=== PATIENT | female | born 1955 | race Caucasian/White ===

== ENCOUNTER 2019-08-29 07:20 | Observation (INO) | payer BC ==
[2019-08-29] MEDS ORDERED: ONDANSETRON 4 MG/2 ML VIAL IVP STA (07:37)
[2019-08-29] MEDS ORDERED: SODIUM CHLORIDE 0.9% 2,000 ML IV STA (07:37)
[2019-08-29] MEDS ORDERED: KETOROLAC 30 MG/ML 1 ML VIAL IVP STA (07:37)
--- NOTE | 2019-08-29 07:39 | ED ---
General Adult HPI - General Chief complaint: Nausea/Vomiting/Diarrhea Stated complaint: Lower L abd pain Time Seen by Provider: 08/29/19 07:28 Source: patient Mode of arrival: ambulatory Limitations: no limitations - History of Present Illness Initial comments: This is a 63-year-old female presents emergency Department chief complaint left lower quadrant abdominal pain. Patient states his started around 10 PM last night has been persistent. Patient states that makes pain feel better or worse. Patient states that she's been vomiting throughout the night there is no back pain or any flank pain at this time. She denies any history of abdominal series or any prior GI infections such as diverticulitis. Patient's had no melena, hematochezia. No dysuria no hematuria. She states she is unable to take anything for pain because she's been vomiting. No chest pain or shortness breath. - Related Data Allergies Allergy/AdvReac Type Severity Reaction Status Date / Time Penicillins Allergy Rash/Hives Verified 08/29/19 07:25 Review of Systems ROS Statement: Those systems with pertinent positive or pertinent negative responses have been documented in the HPI. ROS Other: All systems not noted in ROS Statement are negative. Past Medical History Past Medical History: No Reported History History of Any Multi-Drug Resistant Organisms: None Reported Past Surgical History: No Surgical Hx Reported Past Psychological History: No Psychological Hx Reported Smoking Status: Never smoker Past Alcohol Use History: Occasional Past Drug Use History: None Reported General Exam Limitations: no limitations General appearance: alert, in no apparent distress Head exam: Present: atraumatic, normocephalic, normal inspection ENT exam: Present: mucous membranes dry Neck exam: Present: normal inspection, full ROM. Absent: tenderness, meningismus, lymphadenopathy Respiratory exam: Present: normal lung sounds bilaterally. Absent: respiratory distress, wheezes, rales, rhonchi, stridor Cardiovascular Exam: Present: regular rate, normal rhythm, normal heart sounds. Absent: systolic murmur, diastolic murmur, rubs, gallop, clicks GI/Abdominal exam: Present: soft, tenderness (Moderate left lower quadrant), normal bowel sounds. Absent: distended, guarding, rebound, rigid Back exam: Absent: CVA tenderness (R), CVA tenderness (L) Neurological exam: Present: alert, oriented X3 Skin exam: Present: warm, dry, intact, normal color. Absent: rash Course Vital Signs 08/29/19 07:22 Temperature 98.3 F Pulse Rate 104 H Respiratory 18 Rate Blood Pressure 138/90 O2 Sat by Pulse 95 Oximetry Medical Decision Making - Medical Decision Making 63-year-old female presented from for abdominal discomfort. Labs reviewedand abnormality., CT shows evidence of a 12 x 12 cm pelvic mass concerning for ovarian malignancy. Patient will be admitted for evaluation and further treatment. - Lab Data Result diagrams: 08/29/19 07:51 08/29/19 07:51 Lab Results 08/29/19 08/29/19 08/29/19 Range/Units 07:51 07:51 07:51 WBC 7.9 (3.8-10.6) k/uL RBC 4.38 (3.80-5.40) m/uL Hgb 13.2 (11.4-16.0) gm/dL Hct 40.6 (34.0-46.0) % MCV 92.7 (80.0-100.0) fL MCH 30.1 (25.0-35.0) pg MCHC 32.5 (31.0-37.0) g/dL RDW 12.3 (11.5-15.5) % Plt Count 258 (150-450) k/uL Neutrophils % 89 % Lymphocytes % 6 % Monocytes % 2 % Eosinophils % 1 % Basophils % 1 % Neutrophils # 7.1 (1.3-7.7) k/uL Lymphocytes # 0.4 L (1.0-4.8) k/uL Monocytes # 0.2 (0-1.0) k/uL Eosinophils # 0.0 (0-0.7) k/uL Basophils # 0.1 (0-0.2) k/uL Sodium 137 (137-145) mmol/L Potassium 4.1 (3.5-5.1) mmol/L Chloride 104 (98-107) mmol/L Carbon Dioxide 26 (22-30) mmol/L Anion Gap 7 mmol/L BUN 13 (7-17) mg/dL Creatinine 0.58 (0.52-1.04) mg/dL Est GFR (CKD-EPI)AfAm >90 (>60 ml/min/1.73 sqM) Est GFR (CKD-EPI)NonAf >90 (>60 ml/min/1.73 sqM) Glucose 162 H (74-99) mg/dL Plasma Lactic Acid Naveen (0.7-2.0) mmol/L Calcium 9.5 (8.4-10.2) mg/dL Total Bilirubin 0.4 (0.2-1.3) mg/dL AST 27 (14-36) U/L ALT 22 (4-34) U/L Alkaline Phosphatase 52 (38-126) U/L Total Protein 7.3 (6.3-8.2) g/dL Albumin 4.5 (3.5-5.0) g/dL Amylase 61 (30-110) U/L Lipase 56 (23-300) U/L Urine Color Yellow Urine Appearance Clear (Clear) Urine pH 7.5 (5.0-8.0) Ur Specific [place] 1.021 (1.001-1.035) Urine Protein Trace H (Negative) Urine Glucose (UA) Trace H (Negative) Urine Ketones 2+ H (Negative) Urine Blood Trace H (Negative) Urine Nitrite Negative (Negative) Urine Bilirubin Negative (Negative) Urine Urobilinogen <2.0 (<2.0) mg/dL Ur Leukocyte Esterase Negative (Negative) Urine RBC 5 (0-5) /hpf Urine WBC 1 (0-5) /hpf Ur Squamous Epith Cells <1 (0-4) /hpf Amorphous Sediment Rare H (None) /hpf Urine Mucus Occasional H (None) /hpf 08/28/ Range/Units 07:51 WBC (3.8-10.6) k/uL RBC (3.80-5.40) m/uL Hgb (11.4-16.0) gm/dL Hct (34.0-46.0) % MCV (80.0-100.0) fL MCH (25.0-35.0) pg MCHC (31.0-37.0) g/dL RDW (11.5-15.5) % Plt Count (150-450) k/uL Neutrophils % % Lymphocytes % % Monocytes % % Eosinophils % % Basophils % % Neutrophils # (1.3-7.7) k/uL Lymphocytes # (1.0-4.8) k/uL Monocytes # (0-1.0) k/uL Eosinophils # (0-0.7) k/uL Basophils # (0-0.2) k/uL Sodium (137-145) mmol/L Potassium (3.5-5.1) mmol/L Chloride (98-107) mmol/L Carbon Dioxide (22-30) mmol/L Anion Gap mmol/L BUN (7-17) mg/dL Creatinine (0.52-1.04) mg/dL Est GFR (CKD-EPI)AfAm (>60 ml/min/1.73 sqM) Est GFR (CKD-EPI)NonAf (>60 ml/min/1.73 sqM) Glucose (74-99) mg/dL Plasma Lactic Acid Naveen 1.2 (0.7-2.0) mmol/L Calcium (8.4-10.2) mg/dL Total Bilirubin (0.2-1.3) mg/dL AST (14-36) U/L ALT (4-34) U/L Alkaline Phosphatase (38-126) U/L Total Protein (6.3-8.2) g/dL Albumin (3.5-5.0) g/dL Amylase (30-110) U/L Lipase (23-300) U/L Urine Color Urine Appearance (Clear) Urine pH (5.0-8.0) Ur Specific [place] (1.001-1.035) Urine Protein (Negative) Urine Glucose (UA) (Negative) Urine Ketones (Negative) Urine Blood (Negative) Urine Nitrite (Negative) Urine Bilirubin (Negative) Urine Urobilinogen (<2.0) mg/dL Ur Leukocyte Esterase (Negative) Urine RBC (0-5) /hpf Urine WBC (0-5) /hpf Ur Squamous Epith Cells (0-4) /hpf Amorphous Sediment (None) /hpf Urine Mucus (None) /hpf Disposition Clinical Impression: Abdominal pain, Pelvic mass Disposition: ADMITTED IP TO THIS HOSP Condition: Fair Referrals: Samuel Arauz MD [Primary Care Provider] - 1-2 days
[2019-08-29 08:08] LABS: Basophils # (A) 0.1 k/uL (0-0.2); Basophils % (A) 1 %; Eosinophils % (A) 1 %; HCT 40.6 % (34.0-46.0); HGB 13.2 gm/dL (11.4-16.0); Lymphocytes # (A) 0.4 k/uL (1.0-4.8); Lymphocytes % (A) 6 %; MCH 30.1 pg (25.0-35.0); MCHC 32.5 g/dL (31.0-37.0); MCV 92.7 fL (80.0-100.0); Monocytes # (A) 0.2 k/uL (0-1.0); Monocytes % (A) 2 %; Neutrophils # (A) 7.1 k/uL (1.3-7.7); Neutrophils % (A) 89 %; Platelet Count 258 k/uL (150-450); RBC 4.38 m/uL (3.80-5.40); RDW 12.3 % (11.5-15.5); WBC 7.9 k/uL (3.8-10.6)
[2019-08-29 08:20] LABS: ALT 22 U/L (4-34); AST 27 U/L (14-36); African American GFR (CKD) >90 (>60 ml/min/1.73 sqM); Albumin 4.5 g/dL (3.5-5.0); Alkaline Phosphatase 52 U/L (38-126); Amylase 61 U/L (30-110); Anion Gap 7 mmol/L; Blood Urea Nitrogen 13 mg/dL (7-17); Calcium 9.5 mg/dL (8.4-10.2); Carbon Dioxide 26 mmol/L (22-30); Chloride 104 mmol/L (98-107); Glucose 162 mg/dL (74-99); Non-African American GFR(CKD) >90 (>60 ml/min/1.73 sqM); Potassium 4.1 mmol/L (3.5-5.1); Sodium 137 mmol/L (137-145); Total Bilirubin 0.4 mg/dL (0.2-1.3); Total Protein 7.3 g/dL (6.3-8.2)
--- NOTE | 2019-08-29 08:46 | CT ---
EXAMINATION TYPE: CT abdomen pelvis w con DATE OF EXAM: 08/29/2019 REFERENCE: NONE HISTORY: LLQ abd pain HISTORY: Left lower abdominal pain REFERENCE: NONE CT DLP: 796.5 mGy Automated exposure control for dose reduction was used. TECHNIQUE: Helical acquisition through the abdomen and pelvis was obtained following the oral ingesti on of without Oral Contrast and following intravenous administration of 100 ml mL of Isovue 300. The data was reformatted in axial, coronal and sagittal projections. FINDINGS: There is minimal dependent atelectasis at the lung bases. There is some scarring or atelec tasis in the right middle lobe. Visualized portions of the lungs are otherwise clear. There is no ple ural or pericardial fluid. The heart is not enlarged. Within the abdomen, there are multiple low attenuating lesions within the liver. The largest measures 1.5 cm and is in the posterior segment of the right lobe of the liver. These likely represent cysts. This could be confirmed with ultrasound. The spleen and gallbladder are normal. There is a small, sliding hiatal hernia. Both adrenal glands are normal. Both kidneys demonstrate function and appear morphologically normal. The pancreas is unremarkable. There is no significant retroperitoneal, iliac or inguinal adenopathy. There is a multiloculated and septated 11 x 10.3 x 11.8 cm mass arising in the pelvis. This is most l ikely ovarian in origin. The uterus is tilted towards the left due to this mass. The uterus is slight ly heterogenous and may be affected by fibroid change. The bladder is not distended. There is no significant diverticular change and there is no radiographic evidence of diverticulitis. The appendix is normal. Small bowel loops are of normal caliber. No free air is seen. There is a small amount of free fluid within the pelvis. There is degenerative disc disease and a vacuum phenomena present at L5-S1. There is degenerative gra de 1 spondylolisthesis of L4 and L5. No bony destructive lesions are seen. IMPRESSION: 1. LARGE, 11 X 10.3 X 11.8 CM PELVIC MASS WHICH IS LOCULATED WITH 6 SEPTI WITHIN IT. THIS LIKELY FIONA ES FROM THE RIGHT OVARY AND IS CONCERNING FOR OVARIAN MALIGNANCY. 2. PROBABLE FIBROID CHANGE WITHIN THE UTERUS. 3. SMALL, SLIDING HIATAL HERNIA. 4. MULTIPLE, SMALL HEPATIC LESIONS LIKELY REPRESENTING CYSTS. THIS SHOULD BE CONFIRMED WITH ULTRASOUN D. 5. PROBABLE FIBROID UTERUS. 6. DEGENERATIVE CHANGES WITHIN THE SPINE. THIS WAS PHONED TO SENG HOLLAND IN THE ER AT THE TIME OF REPORTING.
[2019-08-29 08:53] LABS: Amorphous Sediment,Urine Rare /hpf; Appearance,Urine Clear (Clear); Bilirubin,Urine Negative (Negative); Blood,Urine Trace (Negative); Color,Urine Yellow; Glucose,Urine (UA) Trace (Negative); Ketones,Urine 2+ (Negative); Leukocyte Esterase,Urine Negative (Negative); Mucus,Urine Occasional /hpf; Nitrite,Urine Negative (Negative); PH, Urine 7.5 (5.0-8.0); Protein,Urine Trace (Negative); RBC,Urine 5 /hpf (0-5); Specific Gravity,Urine 1.021 (1.001-1.035); Squamous Epithelial Cell,Urine <1 /hpf (0-4); Urobilinogen,Urine <2.0 mg/dL (<2.0); WBC,Urine 1 /hpf (0-5)
[2019-08-29] MEDS ORDERED: MORPHINE SULFATE 4 MG/ML SYRINGE IVP STA (08:56)
[2019-08-29] MEDS ORDERED: NALOXONE 0.4 MG/ML 1 ML VIAL IV PRN (09:05)
[2019-08-29] MEDS ORDERED: ONDANSETRON 4 MG/2 ML VIAL IVP PRN (09:05)
[2019-08-29] MEDS ORDERED: HYDROcodone/APAP 5-325MG 1 EACH TAB PO PRN (09:05)
--- NOTE | 2019-08-29 14:04 | P.CONS ---
History of Present Illness - Reason for Consult Consult date: 08/29/19 Pelvic Mass Requesting physician: Meño Gonsales - Chief Complaint Abdominal Pain - History of Present Illness Very pleasant female who presented with abdominal pain and nausea. She States she has been feeling "gassy, Bloated" although when it didnt go away presented for further evaluation. A large pelvic mass was seen on CT appears to be arising from ovary. Molly has an extensive ovarian and breast cancer history in family, no personal history of cancer Review of Systems A 14 point review of systems assessed and completed and all negative except HPI Past Medical History Past Medical History: No Reported History History of Any Multi-Drug Resistant Organisms: None Reported Past Surgical History: No Surgical Hx Reported Past Anesthesia/Blood Transfusion Reactions: No Reported Reaction Past Psychological History: No Psychological Hx Reported Smoking Status: Never smoker Past Alcohol Use History: Occasional Past Drug Use History: None Reported Medications and Allergies Home Medications Medication Instructions Recorded Confirmed Type Atorvastatin [Lipitor] 20 mg PO DAILY 08/29/19 08/29/19 History Allergies Allergy/AdvReac Type Severity Reaction Status Date / Time Penicillins Allergy Rash/Hives Verified 08/29/19 13:17 Physical Exam Vitals: Vital Signs Temp Pulse Resp BP Pulse Ox 08/29/19 11:43 16 08/29/19 09:31 92 18 141/78 99 08/29/19 09:26 91 18 98 08/29/19 07:22 98.3 F 104 H 18 138/90 95 Intake and Output 08/28/19 08/29/19 08/29/19 22:59 06:59 14:59 Other: Weight 70.307 kg - Constitutional General appearance: cooperative, no acute distress - EENT Eyes: EOMI, PERRLA, dentition normal ENT: normal oropharynx - Neck Neck: normal ROM - Respiratory Respiratory: negative: CTA - Cardiovascular Rhythm: regular Heart sounds: normal: S1, S2 - Gastrointestinal General gastrointestinal: distended, soft, tenderness - Integumentary Integumentary: pale - Neurologic Neurologic: CNII-XII intact - Musculoskeletal Musculoskeletal: generalized weakness, strength equal bilaterally - Psychiatric Psychiatric: A&O x's 3, appropriate affect, intact judgment & insight Results CBC & Chem 7: 08/29/19 07:51 08/29/19 07:51 Labs: Abnormal Lab Results - Last 24 Hours (Table) 0608/29/19 08/29/19 Range/Units 07:51 07:51 07:51 Lymphocytes # 0.4 L (1.0-4.8) k/uL Glucose 162 H (74-99) mg/dL Urine Protein Trace H (Negative) Urine Glucose (UA) Trace H (Negative) Urine Ketones 2+ H (Negative) Urine Blood Trace H (Negative) Amorphous Sediment Rare H (None) /hpf Urine Mucus Occasional H (None) /hpf Assessment and Plan Plan: Assessment and Recommendations: New Pelvic Mass: - Identified on CT as arising from Ovary - LDH and Ca125 ordered - Suspicious for malignancy arising from ovary, in this situation a biopsy is not usually recommended but rather intervention for Debulking surgical intervention. Will await Ca125 and LDH to determine probable etiology - Intravaginal Ultrasound to further assess mass - PACKING ROOM WORKER has been consulted Liver Lesions: - Too small to characterize on CT, likely cystic although MRI ordered to further define Thankyou for consultation
--- NOTE | 2019-08-29 14:23 | P.OBCN ---
History of Present Illness Consult date: 08/29/19 Requesting physician: Raphael Del Cid Reason for consult: pelvic pain, pelvic mass Chief complaint: pelvic pain, emesis History of present illness: 63-year-old presented to the emergency room complaining of left lower quadrant pain since last night around 11 PM. The pain came on suddenly and kept waking her up causing nausea and vomiting. Computed tomography scan shows an 11 x 10 x 11.8 cm left pelvic mass that has septations and they could not rule out malignancy. I was consulted for the pelvic mass. Review of Systems All systems: negative Constitutional: Denies chills, Denies fever Eyes: denies blurred vision, denies pain Ears, nose, mouth and throat: Denies headache, Denies sore throat Cardiovascular: Denies chest pain, Denies shortness of breath Respiratory: Denies cough Gastrointestinal: Reports abdominal pain, Reports nausea, Reports vomiting, Denies diarrhea Genitourinary: Denies abnormal vaginal bleeding, Denies dysuria, Denies hematuria Menstruation: Reports postmenopausal Musculoskeletal: Denies myalgias Integumentary: Denies pruritus, Denies rash Neurological: Denies numbness, Denies weakness Psychiatric: Denies anxiety, Denies depression Endocrine: Denies fatigue, Denies weight change Past Medical History Past Medical History: No Reported History Additional Past Medical History / Comment(s): Obstetric history: She's had 2 full-term vaginal deliveries History of Any Multi-Drug Resistant Organisms: None Reported Past Surgical History: No Surgical Hx Reported Past Anesthesia/Blood Transfusion Reactions: No Reported Reaction Past Psychological History: No Psychological Hx Reported Smoking Status: Never smoker Past Alcohol Use History: Occasional Past Drug Use History: None Reported Additional History: 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 No significant issues noted on an osteopathic structural exam other than those noted in the History and Physical/Consult. Vital Signs Temp Pulse Resp BP Pulse Ox 08/29/19 11:43 16 08/29/19 09:31 92 18 141/78 99 08/29/19 09:26 91 18 98 08/29/19 07:22 98.3 F 104 H 18 138/90 95 Intake and Output 08/28/19 08/29/19 08/29/19 22:59 06:59 14:59 Other: Weight 70.307 kg Heart: Regular rate and rhythm Lungs: Clear to auscultation bilaterally Abdomen: From the umbilicus down, her abdomen is hard, no rebound, no rigidity, tenderness more in the left side but also diffuse. Extremities: Negative Homans sign, no edema, 2 out of 4 DTR Results Result Diagrams: 08/29/19 07:51 08/29/19 07:51 Abnormal Lab Results - Last 24 Hours (Table) 08/29/19 08/29/19 08/29/19 Range/Units 07:51 07:51 07:51 Lymphocytes # 0.4 L (1.0-4.8) k/uL Glucose 162 H (74-99) mg/dL Urine Protein Trace H (Negative) Urine Glucose (UA) Trace H (Negative) Urine Ketones 2+ H (Negative) Urine Blood Trace H (Negative) Amorphous Sediment Rare H (None) /hpf Urine Mucus Occasional H (None) /hpf Assessment and Plan (1) Pelvic mass Current Visit: Yes Status: Acute Code(s): R19.00 - INTRA-ABD AND PELVIC SWELLING, MASS AND LUMP, UNSP SITE SNOMED Code(s): 55358790 Plan: 1.There was no ultrasound done to check for blood flow to that ovary so I will order that stat. CA-125 will also be ordered. 2. I had a long mo discussion with the patient today. I advised her that the computed tomography scan could not rule out cancer. We had a discussion about whether she has flow to that ovary or not and if the surgery to remove the pelvic mass and ovary should be done here at [facility]. If there is no flow to that ovary this becomes more of an urgent situation. However, if she does have cancer and that ovary, that her best chance for overall survival is in the hands of a RECEIVER STOCKER oncologist performing her surgery. After this thorough consultation, I advised that the patient should be transferred to [facility] where a gynecological oncology surgeon could evaluate and treat. I will discuss the case with Dr. Moeller, our her medical oncologist, to come up with her best plan. Time with Patient: Greater than 30
[2019-08-29] MEDS: MORPHINE SULFATE 4 MG/ML SYRINGE IV PRN ×2 (14:30→18:57)
--- NOTE | 2019-08-29 16:19 | US ---
EXAMINATION TYPE: US pelvic complete DATE OF EXAM: 08/29/2019 COMPARISON: NONE CLINICAL HISTORY: pelvic mass, possible torsion. TECHNIQUE: . Transabdominal sonographic images of the pelvis were acquired. Transvaginal sonographi c images were medically necessary to better assess the following anatomy: Date of LMP: EXAM MEASUREMENTS: Uterus: 7.2 x 3.4 x 3.9 cm Endometrial Stripe: 0.6 cm Right Ovary: not positively identified Left Ovary: not positively identified 1. Uterus: Anteverted 2. Endometrium: difficult to visualize due to artifact from mass, appears wnl as seen 3. Right Ovary not positively identified 4. Left Ovary: not positively identified There is a multiloculated and septated 13.3 x 9.5 x 9.3 cm mass midline pelvis. This is most likely ovarian in origin. Mass does not show blood flow, this is probably due to size of mass and cystic peña ure as opposed to torsion, however torsion could not be ruled out. 5. Bilateral Adnexa: wnl 6. Posterior cul-de-sac: small amount of ff IMPRESSION: There is a large multiseptated cystic pelvic mass on the right side of the pelvis. Normal-appearing o varies are not identified. Uterus appears normal. Cystic ovarian tumor should be considered. No free fluid.
[2019-08-29 16:53] LABS: Cancer Antigen 125 12.6 U/mL (0.0-30.1)
[2019-08-29] MEDS: SENNOSIDES-DOCUSATE SODIUM 1 EACH TAB PO SCH (19:41)
[2019-08-29] MEDS: POLYETHYLENE GLYCOL 3350 17 GM POWD.PACK PO SCH (20:50)
--- NOTE | 2019-08-30 00:25 | P.HPIM ---
History of Present Illness H&P Date: 08/29/19 Chief Complaint: abdominal pain Patient is a 53-year-old female without significant past medical history came to ER with complaints of abdominal pain mainly in the left lower quadrant worsening since last night. Patient has been having persistent pain which made her to come to ER today morning. Patient is also having nausea and vomiting throughout the night. Denied any complaints of fever or chills. No complaints of chest pain or shortness of breath no cough or sputum production. Denied any hematemesis or melena. Denied any dysuria or hematuria. Patient states that she is unable to keep down anything due to intractable nausea and vomiting. Patient also states that she had a large bowel movement few days ago. Able to pass flatus otherwise. denied any weight loss or loss of appetite. CT of the abdomen pelvis showed a large 11 x 10.3 x 11.8 cm pelvic mass which is loculated with 6 septae with. This is likely arising from the right ovary and is concerning for ovarian malignancy. Probable fibroid changes in the uterus Small sliding hiatal hernia Multiple small hepatic lesions likely representing cysts. Degenerative changes within the spine. Laboratory data showed WBC 7.9, hemoglobin 13.1 platelets 258, lymphocytes absolute 0.4 Electrolytes and liver enzymes within normal limits. UA is negative for infection. Patient has been afebrile and saturating well on room air at 97%. Review of Systems Constitutional: Patient denies any fever or chills . No generalized weakness or weight loss. Abdomen: Patient does have nausea vomiting and abdominal pain. no diarrhea. Cardiovascular: Patient denies any chest pain or short of breath no palpitations. Respiratory: patient denied any cough is from production. No shortness of breath Neurologic: Patient denied any numbness or tingling headache. Musculoskeletal: Patient denies any complaints of joint swelling or deformity. Skin: Negative Psychiatric: Negative Endocrine: No heat or cold intolerance. No recent weight gain. Genitourinary: No dysuria or hematuria. All other 14 point ROS negative except the above Past Medical History Past Medical History: No Reported History Additional Past Medical History / Comment(s): Obstetric history: She's had 2 full-term vaginal deliveries History of Any Multi-Drug Resistant Organisms: None Reported Past Surgical History: No Surgical Hx Reported Past Anesthesia/Blood Transfusion Reactions: No Reported Reaction Past Psychological History: No Psychological Hx Reported Smoking Status: Never smoker Past Alcohol Use History: Occasional Past Drug Use History: None Reported Medications and Allergies Home Medications Medication Instructions Recorded Confirmed Type Atorvastatin [Lipitor] 20 mg PO DAILY 08/29/19 08/29/19 History Allergies Allergy/AdvReac Type Severity Reaction Status Date / Time Penicillins Allergy Rash/Hives Verified 08/29/19 13:17 Physical Exam Vitals: Vital Signs Temp Pulse Pulse Resp BP BP Pulse Ox 08/29/19 23:51 87 18 08/29/19 23:43 97.2 F L 87 18 106/55 95 08/29/19 20:00 98.2 F 93 18 117/75 93 L 08/29/19 16:00 99.3 F 95 16 120/74 97 08/29/19 15:55 16 08/29/19 11:43 16 08/29/19 09:31 92 18 141/78 99 08/29/19 09:26 91 18 98 08/29/19 07:22 98.3 F 104 H 18 138/90 95 Intake and Output 08/29/19 08/29/19 08/30/19 14:59 22:59 06:59 Other: # Voids 1 1 Weight 70.307 kg PHYSICAL EXAMINATION: Patient is lying in the bed comfortably, no acute distress, awake alert and oriented.. HEENT: Normocephalic. Neck is supple. Pupils reactive. Nostrils clear. Oral cavity is moist. Ears reveal no drainage. Neck reveals no JVD, carotid bruits, or thyromegaly. CHEST EXAMINATION: Trachea is central. Symmetrical expansion. Lung perez clear to auscultation and percussion. Bilateral surgical site is bandaged. CARDIAC: Normal S1, S2 with no gallops. No murmurs ABDOMEN: Soft. tenderness LLQ, hard mass palpable in the lower abdomen, no gua rding or rigidity, Bowel sounds present. No abdominal bruits. Extremities: reveal no edema. No clubbing or cyanosis Neurologically awake, alert, oriented x3 with well-coordinated movements. No focal deficits noted Skin: No rash or skin lesions. Psychiatric: Coperative. Nonsuicidal Musculoskeletal: No joint swelling or deformity. Normal range of motion. Results CBC & Chem 7: 08/29/19 07:51 08/29/19 07:51 Labs: Abnormal Lab Results - Last 24 Hours (Table) 08/29/19 08/29/1908/28/20 Range/Units 07:51 07:51 07:51 Lymphocytes # 0.4 L (1.0-4.8) k/uL Glucose 162 H (74-99) mg/dL Urine Protein Trace H (Negative) Urine Glucose (UA) Trace H (Negative) Urine Ketones 2+ H (Negative) Urine Blood Trace H (Negative) Amorphous Sediment Rare H (None) /hpf Urine Mucus Occasional H (None) /hpf Thrombosis Risk Factor Assmnt - Choose All That Apply Any of the Below Risk Factors Present?: No Each Risk Factor Represents 2 Points: Age 61-74 years Thrombosis Risk Factor Assessment Total Risk Factor Score: 2 Thrombosis Risk Factor Assessment Level: Low Risk Assessment and Plan Assessment: Large pelvic mass likely arising from the right ovary. Possible ovarian malignancy. Small liver lesions likely cystic. Intractable nausea and vomiting Constipation. Fibroid uterus DVT prophylaxis with early ambulation. Plan: Patient had CT of the abdomen pelvis showed pelvic mass arising likely from the right ovary. LDH and Ca1 25 was ordered. Transvaginal ultrasound was ordered. Ultrasound pelvis was ordered by SENIOR RISK MANAGER. Discussed with oncology team. patient will be continued on symptomatic management for nausea and vomiting and also stool softeners and bowel regimen for constipation. Plan to transfer the patient to tertiary care facility to be seen by SENIOR RISK MANAGER oncology [facility] at [facility] or [facility]. Coordinating with medical oncology team. Time with Patient: Greater than 30
--- NOTE | 2019-08-30 08:13 | US ---
EXAMINATION TYPE: US liver DATE OF EXAM: 08/30/2019 COMPARISON: NONE CLINICAL HISTORY: Further assess lesions on liver. EXAM MEASUREMENTS: Liver Length: 15.2 cm Gallbladder Wall: 0.2 cm CBD: 0.4 cm Right Kidney: 10 x 4.7 x 4.9 cm Pancreas: Tail obscured by overlying bowel gas, visualized portions appear wnl Liver: Two hypoechoic areas visualized, largest in the right lobe near the diaphragm measuring 1.2 x 0.5 x 1.2 cm, possible cysts Gallbladder: Two non-shadowing echogenic foci visualized, possible polyps vs stones Evidence for sonographic Lenz's sign: No CBD: wnl Right Kidney: No hydronephrosis or masses seen Tiny amount of ascites visualized in the RLQ Limited views of the pancreas are normal. The liver is normal in size without biliary dilatation. There are 2 hypoechoic within the dome of the right lobe of the diaphragm measuring 1.2 cm. These do not meet the requirements of simple cysts. There are 2 stones within the gallbladder. The gallbladder wall measures 2 mm. This common hepatic du ct measures 4 mm. There is no sonographic Lenz's sign. The right kidney is unremarkable. IMPRESSION: 1. CHOLELITHIASIS. 2. 2 LESIONS WITHIN THE RIGHT LOBE OF THE LIVER DOES NOT MEET THE REQUIREMENTS OF SIMPLE CYSTS. A CT SCAN OF THE ABDOMEN WOULD BE SUGGESTED.
[2019-08-30] MEDS: SENNOSIDES-DOCUSATE SODIUM 1 EACH TAB PO SCH (08:27)
[2019-08-30] MEDS: POLYETHYLENE GLYCOL 3350 17 GM POWD.PACK PO SCH (08:27)
[2019-08-30 10:18] VITALS: RESP 16
[2019-08-30] MEDS: MORPHINE SULFATE 4 MG/ML SYRINGE IV PRN (12:30)
[2019-08-30 12:35] VITALS: BP 121/72; PULSE 95; TEMP 98.4
--- NOTE | 2019-08-30 13:35 | P.PN ---
Subjective Progress Note Date: 08/30/19 Principal diagnosis: New Pelvis Mass No BM Yet, still with pain and nausea. Discussed with Dr. Rabbi Joyner and will plan for hospital hospital transfer to [facility] for plan of [facility]. Objective - Vital Signs Vital signs: Vital Signs Temp 98.4 F 08/30/19 12:00 Pulse 95 08/30/19 12:00 Resp 16 08/30/19 12:00 BP 121/72 08/30/19 12:00 Pulse Ox 98 08/30/19 12:00 Intake & Output 08/29/19 08/30/19 08/30/19 18:59 06:59 18:59 Intake Total 118 Balance 118 Weight 70.307 kg Intake: Oral 118 Other: # Voids 1 1 - Exam - Constitutional General appearance: cooperative, no acute distress - EENT Eyes: EOMI, PERRLA, dentition normal ENT: normal oropharynx - Neck Neck: normal ROM - Respiratory Respiratory: negative: CTA - Cardiovascular Rhythm: regular Heart sounds: normal: S1, S2 - Gastrointestinal General gastrointestinal: distended, firm to navel, tenderness - Integumentary Integumentary: pale - Neurologic Neurologic: CNII-XII intact - Musculoskeletal Musculoskeletal: generalized weakness, strength equal bilaterally - Psychiatric Psychiatric: A&O x's 3, appropriate affect, intact judgment & insight - Labs CBC & Chem 7: 08/29/19 07:51 08/29/19 07:51 Assessment and Plan Plan: Assessment and Recommendations: New Pelvic Mass: - Identified on CT as arising from Ovary - Ca125 is not elevated, LDH 400 Liver Lesions: - Too small to characterize on CT, likely cystic although MRI ordered to fur ther define - US liver does not reveal these as consistent with simple cysts, will further assess with MRI Constipation: - Bowel Regimen continued and no obstruction noted on CT. PLan: Plan to transfer to [facility] for surgical intervention of pelvic mass. Hospital to hospital transfer for inability to control symptoms with po medications I did speak to patient and regarding options of discharge and follow up with [facility] onc versus transfer. Since unable to control symptoms with PO medicat ions Patient and prefer to have transfer for intervention from [facility], this is resonable. Have discussed with fitness services manager and Primary team and will start process for transfer. score caller [facility] onc is Dr. Coburn, I spoke to Dr Crystal regarding transfer and she has accepted.
== END 2019-08-30 16:00 ==
LOC: EC 07:20 → 1SOBS 09:07
PROVIDERS: ADMIT Internal Medicine; ATTEND Internal Medicine
DX: R19.00 Intra-abdominal and pelvic swelling, mass and lump, unspecified site (principal); K44.9 Diaphragmatic hernia without obstruction or gangrene; K59.00 Constipation, unspecified; K76.9 Liver disease, unspecified; R53.1 Weakness; D25.9 Leiomyoma of uterus, unspecified; Z80.3 Family history of malignant neoplasm of breast; Z80.41 Family history of malignant neoplasm of ovary; Z79.899 Other long term (current) drug therapy; Z88.0 Allergy status to penicillin
CPT/HCPCS: 96361 ×2; 96376 ×2; 96374; 96375; 99285; 36415; 80053; 86304; 82150; 83605; 83615; 83690; 85025; 81001; 76856; 76830; 76705; 74177; G0378 ×2; U0003; J2270 ×2; J2405; J1885; Q9967